=== PATIENT | male | born 1970 ===

== ENCOUNTER → 2016-07-22 | Outpatient (CLI) | payer OTHER ==
--- NOTE | 2016-07-24 15:09 | Diagnostic Imaging Report ---
APPROVED REPORT CPT Code: 22175 Comments PAIN, ITCHING BILATERALLY BILATERAL: Common femoral artery waveform analysis is within normal limits at rest. Color flow duplex sonography reveals patency of the superficial femoral, popliteal, and tibial arteries, there is no evidence of stenosis or occlusion within these segments. Doppler tibial artery waveform analysis is within normal limits, bilaterally.
--- NOTE | 2016-07-24 15:11 | Diagnostic Imaging Report ---
APPROVED REPORT CPT Code: 26601 Present Symptoms Lower Extremity Pain: Bilateral BILATERAL: Imaging reveals a patent deep venous system bilaterally. There is no evidence of thrombus within the femoral, popliteal or tibial segments. The greater saphenous veins are also within normal limits. Doppler indicates normal spontaneous flow within these segments.
== END | disposition home or self-care (01) ==
LOC: VAS 13:54
DX: R60.0 Localized edema (principal)
CPT/HCPCS: 93925; 93970